=== PATIENT | male | born 1990 | race Caucasian/White ===

== ENCOUNTER 2022-06-12 18:51 | Emergency (ER) | payer OTHER ==
[2022-06-12 19:02] VITALS: TEMP 98.4
[2022-06-12] MEDS ORDERED: SODIUM CHLORIDE 0.9% 1,000 ML IV STA (19:10)
[2022-06-12] MEDS ORDERED: ACETAMINOPHEN IV (For NPO) 1,000 MG in SALINE 100 100ML.BAG IVPB STA (19:12)
[2022-06-12 19:31] LABS: Basophils % (A) 0 %; Eosinophils # (A) 0.5 k/uL (0-0.7); Eosinophils % (A) 5 %; HCT 43.9 % (39.0-53.0); HGB 15.1 gm/dL (13.0-17.5); Lymphocytes # (A) 2.4 k/uL (1.0-4.8); Lymphocytes % (A) 26 %; MCH 29.9 pg (25.0-35.0); MCHC 34.4 g/dL (31.0-37.0); MCV 86.9 fL (80.0-100.0); Mean Platelet Volume 7.5; Monocytes # (A) 0.5 k/uL (0-1.0); Monocytes % (A) 6 %; Neutrophils # (A) 5.7 k/uL (1.3-7.7); Neutrophils % (A) 62 %; Platelet Count 326 k/uL (150-450); RBC 5.05 m/uL (4.30-5.90); RDW 12.3 % (11.5-15.5); WBC 9.2 k/uL (3.8-10.6)
--- NOTE | 2022-06-12 19:31 | ED ---
General Adult HPI - General Chief complaint: Chest Pain Stated complaint: Chest Pain Time Seen by Provider: 06/12/22 19:04 Source: patient, RN notes reviewed Mode of arrival: ambulatory Limitations: no limitations - History of Present Illness Initial comments: This is a pleasant 31-year-old male who presents to the emergency department complaining of headache and chest discomfort. Patient states about 5:00 he just finished eating and developed a headache which came on fairly suddenly. Patient states it was throbbing and sharp behind his eyes. Patient still has the headache. He states the headache currently as severe. Patient also ascertains that he has some nausea. Patient states she has no history of headaches. Patient does have a history of pulmonary embolism as well as hypertension and panic attacks. Patient states he takes lisinopril, metoprolol, and Lipitor. Patient currently at [facility] for opioids and metham phetamine. Patient also states that he previously had bilateral pulmonary emboli about 10 years ago. Patient states that the chest discomfort is intermittent. Apparently he was given nitroglycerin in the ambulance. This may worsen the headache. She denying any vertiginous symptoms. No vision change. Headache currently throbbing. Patient does ascertains that he has some neck stiffness. Note that the patient states he has experienced chest discomfort such as this previously when he has had panic attacks. Patient states he has been at [facility] for about 10 days. no fever or chills, no changes in vision or hearing, no sore throat or difficulty with speech, no neck pain, noshortness of breath, no abdominal pain, no nausea or vomiting, no changes in urination or bowel movements, no numbness or tingling, no extremity pain, no skin rashes or lesions. Past medical, surgical, social, and family history reviewed. - Related Data Home Medications Medication Instructions Recorded Confirmed Acetaminophen Tab [Tylenol] 650 mg PO TID 06/12/22 06/12/22 Atorvastatin [Lipitor] 10 mg PO HS 06/12/22 06/12/22 Calcium/Magnesium/Zinc/Vitamin D 1 tab PO TID 06/12/22 06/12/22 Chlorpheniramine Maleate 4 mg PO Q4H PRN 06/12/22 06/12/22 [Chlor-Trimeton] Docusate [Colace] 100 mg PO BID PRN 06/12/22 06/12/22 Ibuprofen [Motrin Ib] 600 mg PO Q6H PRN 06/12/22 06/12/22 Metoprolol Tartrate [Lopressor] 50 mg PO DAILY 06/12/22 06/12/22 Multivitamins, Thera [Multivitamin 1 tab PO DAILY 06/12/22 06/12/22 (formulary)] Nicotine [Nicoderm Cq 14 mg] 1 patch TRANSDERM DAILY PRN 06/12/22 06/12/22 OLANZapine ODT [ZyPREXA ZYDIS] 5 mg PO DAILY PRN 06/12/22 06/12/22 OLANZapine [ZyPREXA] 15 mg PO HS 06/12/22 06/12/22 Paliperidone IM [Invega Sustenna] 156 mg IM QMONTHLY 06/12/22 06/12/22 Thiamine [Vitamin B-1] 100 mg PO DAILY PRN 06/12/22 06/12/22 bisacodyL [Dulcolax] 5 mg PO BID PRN 06/12/22 06/12/22 busPIRone HCl [Buspar] 10 mg PO TID 06/12/22 06/12/22 cloNIDine HCL [Catapres] 0.1 - 0.3 mg PO Q4H PRN 06/12/22 06/12/22 guaiFENesin SYRUP 100MG/5ML 200 mg PO Q4H PRN 06/12/22 06/12/22 [Robitussin] lisinopriL [Prinivil] 20 mg PO DAILY 06/12/22 06/12/22 traZODone HCL [Desyrel] 50 mg PO HS 06/12/22 06/12/22 Allergies Allergy/AdvReac Type Severity Reaction Status Date / Time codeine AdvReac Vomiting Verified 06/12/22 19:02 Review of Systems ROS Statement: Those systems with pertinent positive or pertinent negative responses have been documented in the HPI. ROS Other: All systems not noted in ROS Statement are negative. Past Medical History Past Medical History: Hypertension Additional Past Medical History / Comment(s): Back problems. History of Any Multi-Drug Resistant Organisms: None Reported Additional Past Surgical History / Comment(s): Back Past Psychological History: Anxiety, Schizophrenia Smoking Status: Current every day smoker Past Alcohol Use History: None Reported Past Drug Use History: Methamphetamine, Opiates General Exam - General Exam Comments Initial Comments: Patient appears very mild distress. Vital signs reviewed. Patient noted to be hypertensive. Cranial nerves II through XII are intact. Patient is alert and oriented 4. Does not appear to be ill or toxic. Limitations: no limitations General appearance: alert, in no apparent distress, in distress Head exam: Present: atraumatic, normocephalic, normal inspection Eye exam: Present: normal appearance, PERRL, EOMI. Absent: scleral icterus, c onjunctival injection, periorbital swelling ENT exam: Present: normal exam, normal oropharynx, mucous membranes moist, normal external ear exam. Absent: mucous membranes dry Neck exam: Present: normal inspection, full ROM, other (No evidence of nuchal rigidity). Absent: tenderness, meningismus, lymphadenopathy Respiratory exam: Present: normal lung sounds bilaterally. Absent: respiratory distress, wheezes, rales, rhonchi, stridor Cardiovascular Exam: Present: normal rhythm, tachycardia, normal heart sounds. Absent: systolic murmur, diastolic murmur, rubs, gallop, clicks GI/Abdominal exam: Present: soft, normal bowel sounds. Absent: distended, tenderness, guarding, rebound, rigid Extremities exam: Present: normal inspection, full ROM, normal capillary refill. Absent: tenderness, pedal edema, joint swelling, calf tenderness Back exam: Present: normal inspection Neurological exam: Present: alert, oriented X3, CN II-XII intact, normal gait, reflexes normal. Absent: abnormal gait, motor sensory deficit Expanded Patient oriented to: Present: person, place, time Speech: Present: fluid speech Cranial nerves: EOM's Intact: Normal, Gag Reflex: Normal, Tongue Deviation: Normal, Nystagmus: Normal, Facial Sensation: Normal, Facial Palsy with Forehead Movement: Normal, Facial Palsy without Forehead Movement: Normal Cerebellar function: Finger to Nose: Normal, Romberg: Normal Sensory exam: Upper Extremity Light Touch: Normal, Upper Extremity Pin Prick: N ormal, Lower Extremity Light Touch: Normal, Lower Extremity Pin Prick: Normal Eye Response: (4) open spontaneously Motor Response: (6) obeys commands Verbal Response: (5) oriented Valders Total: 15 Psychiatric exam: Present: normal affect, normal mood Skin exam: Present: warm, dry, intact, normal color. Absent: rash Course Vital Signs 06/12/22 06/12/22 18:57 19:52 Temperature 98.4 F Pulse Rate 115 H 98 Respiratory 22 16 Rate Blood Pressure 154/95 137/96 O2 Sat by Pulse 97 96 Oximetry - Reevaluation(s) Reevaluation #1: 06/12/22 21:27 Medical record is reviewed Symptoms are improved here in the emergency department Patient is informed of results and questions answered Patient in no distress Apparently the patient made statements to the ER and that he was having suicidal ideations, he was discussing the possibility of walking out into traffic. EPS evaluation ordered. Reevaluation #2: 06/12/22 21:56 Medical record is reviewed Symptoms are improved here in the emergency department Patient is informed of results and questions answered Patient in no distress Patient neurologically intact, cranial nerves II through XII intact, no focal deficits Reevaluation #3: 06/12/22 22:55 Patient reevaluated. I did place a call to the on-call neurologist who discussed the case with me in detail. He is driving home and will look at the patient's computed tomography scan in about 25 minutes. Chronic back. The patient himself has no chest symptoms remaining. Headache has improved. No evidence of neurologic deficit. No nuchal rigidity. Heart rate is normalizing. Given the patient's history of anxiety and similar chest symptoms and his age I think this is unlikely to be cardiac ischemia related. Opponent was negative. - Consultations Consultation #1: The case was discussed in detail with ED attending physician. Presentation, findings, treatment plan discussed in detail. Supervising physician, Dr. Pendleton. Call placed for on-call neurology. Call placed to EPS for evaluation as well. Consultation #2: Case again discussed with Dr. Gonzalezwho feels this is a small hemorrhage near the formant of [facility]. Request that the patient get transferred to a facility with neurosurgical care. Consultation #3: Case discussed in detail with Dr. Bray, the ER physician at [facility] accepts transfer. EKG Findings - EKG Comments: EKG Findings:: EKG done at 1856. ED attending physician reveals sinus tachycardia with a short SD interval. Rate of 115 bpm. SD interval is 116 ms. Remainder of the intervals are normal. Mild baseline artifact. Normal axis. Minimal T-wave flattening noted in lead 3. No evidence of significant ST elevation or depression. No comparison study Medical Decision Making - Medical Decision Making I'm going to obtain a computed tomography scan of the brain as a patient has no significant history of headaches. This headache also came on fairly suddenly 2 hours prior to my evaluation. Patient also states that there seems to be some stiff feeling in his neck. On-call neurology, Dr. Rivero, feels this is more indicative of a hemorrhage rather than a colloid cyst. Advises transferred to a neurosurgical center. Call placed to [facility]. Discussed all findings with the patient who is improved headache-villalobos. Patient neurologically intact. Patient still complaining of some neck stiffness. The case was discussed in detail with ED attending physician. Presentation, findings, treatment plan discussed in detail. Filling Mixer Dr. Pendleton Patient was given IV acetaminophen 1000 mg and 1 mg of lorazepam here in the ER. - Lab Data Result diagrams: 06/12/22 19:14 06/12/22 19:14 Lab Results 06/12/22 06/12/22 06/12/22 Range/Units 19:14 19:14 19:14 WBC 9.2 (3.8-10.6) k/uL RBC 5.05 (4.30-5.90) m/uL Hgb 15.1 (13.0-17.5) gm/dL Hct 43.9 (39.0-53.0) % MCV 86.9 (80.0-100.0) fL MCH 29.9 (25.0-35.0) pg MCHC 34.4 (31.0-37.0) g/dL RDW 12.3 (11.5-15.5) % Plt Count 326 (150-450) k/uL MPV 7.5 Neutrophils % 62 % Lymphocytes % 26 % Monocytes % 6 % Eosinophils % 5 % Basophils % 0 % Neutrophils # 5.7 (1.3-7.7) k/uL Lymphocytes # 2.4 (1.0-4.8) k/uL Monocytes # 0.5 (0-1.0) k/uL Eosinophils # 0.5 (0-0.7) k/uL Basophils # 0.0 (0-0.2) k/uL D-Dimer 0.23 (<0.60) mg/L FEU Sodium 140 (137-145) mmol/L Potassium 4.1 (3.5-5.1) mmol/L Chloride 104 (98-107) mmol/L Carbon Dioxide 22 (22-30) mmol/L Anion Gap 14 mmol/L BUN 15 (9-20) mg/dL Creatinine 0.88 (0.66-1.25) mg/dL Est GFR (CKD-EPI)AfAm >90 (>60 ml/min/1.73 sqM) Est GFR (CKD-EPI)NonAf >90 (>60 ml/min/1.73 sqM) Glucose 104 H (74-99) mg/dL Calcium 9.9 (8.4-10.2) mg/dL Magnesium 2.0 (1.6-2.3) mg/dL Total Bilirubin 0.4 (0.2-1.3) mg/dL AST 47 (17-59) U/L ALT 87 H (4-49) U/L Alkaline Phosphatase 77 (38-126) U/L Troponin I (0.000-0.034) ng/mL Total Protein 7.0 (6.3-8.2) g/dL Albumin 4.7 (3.5-5.0) g/dL Urine Opiates Screen (NotDetected) Ur Oxycodone Screen (NotDetected) Urine Methadone Screen (NotDetected) Ur Propoxyphene Screen (NotDetected) Ur Barbiturates Screen (NotDetected) U Tricyclic Antidepress (NotDetected) Ur Phencyclidine Scrn (NotDetected) Ur Amphetamines Screen (NotDetected) U Methamphetamines Scrn (NotDetected) U Benzodiazepines Scrn (NotDetected) Urine Cocaine Screen (NotDetected) U Marijuana (THC) Screen (NotDetected) 06/12/22 06/12/22 Range/Units 19:14 20:56 WBC (3.8-10.6) k/uL RBC (4.30-5.90) m/uL Hgb (13.0-17.5) gm/dL Hct (39.0-53.0) % MCV (80.0-100.0) fL MCH (25.0-35.0) pg MCHC (31.0-37.0) g/dL RDW (11.5-15.5) % Plt Count (150-450) k/uL MPV Neutrophils % % Lymphocytes % % Monocytes % % Eosinophils % % Basophils % % Neutrophils # (1.3-7.7) k/uL Lymphocytes # (1.0-4.8) k/uL Monocytes # (0-1.0) k/uL Eosinophils # (0-0.7) k/uL Basophils # (0-0.2) k/uL D-Dimer (<0.60) mg/L FEU Sodium (137-145) mmol/L Potassium (3.5-5.1) mmol/L Chloride (98-107) mmol/L Carbon Dioxide (22-30) mmol/L Anion Gap mmol/L BUN (9-20) mg/dL Creatinine (0.66-1.25) mg/dL Est GFR (CKD-EPI)AfAm (>60 ml/min/1.73 sqM) Est GFR (CKD-EPI)NonAf (>60 ml/min/1.73 sqM) Glucose (74-99) mg/dL Calcium (8.4-10.2) mg/dL Magnesium (1.6-2.3) mg/dL Total Bilirubin (0.2-1.3) mg/dL AST (17-59) U/L ALT (4-49) U/L Alkaline Phosphatase (38-126) U/L Troponin I <0.012 (0.000-0.034) ng/mL Total Protein (6.3-8.2) g/dL Albumin (3.5-5.0) g/dL Urine Opiates Screen Not Detected (NotDetected) Ur Oxycodone Screen Not Detected (NotDetected) Urine Methadone Screen Not Detected (NotDetected) Ur Propoxyphene Screen Not Detected (NotDetected) Ur Barbiturates Screen Not Detected (NotDetected) U Tricyclic Antidepress Not Detected (NotDetected) Ur Phencyclidine Scrn Not Detected (NotDetected) Ur Amphetamines Screen Not Detected (NotDetected) U Methamphetamines Scrn Not Detected (NotDetected) U Benzodiazepines Scrn Not Detected (NotDetected) Urine Cocaine Screen Not Detected (NotDetected) U Marijuana (THC) Screen Not Detected (NotDetected) - Radiology Data Radiology results: report reviewed, image reviewed Disposition Clinical Impression: Acute headache, Intracranial hemorrhage, Suicidal ideation, Uncontrolled hypertension, Atypical chest pain Disposition: TRANSFER TO PSYCH HOSP/UNIT Condition: Stable Is patient prescribed a controlled substance at d/c from ED?: No Referrals: None,Stated [Primary Care Provider] - 1-2 days Time of Disposition: 22:58 - Out of Hospital Transfer - Req. Specs Out of Hospital Transfer - Requested Specifics: Other Emergency Center
[2022-06-12 19:44] LABS: ALT 87 U/L (4-49); AST 47 U/L (17-59); African American GFR (CKD) >90 (>60 ml/min/1.73 sqM); Albumin 4.7 g/dL (3.5-5.0); Alkaline Phosphatase 77 U/L (38-126); Anion Gap 14 mmol/L; Blood Urea Nitrogen 15 mg/dL (9-20); Calcium 9.9 mg/dL (8.4-10.2); Carbon Dioxide 22 mmol/L (22-30); Chloride 104 mmol/L (98-107); Glucose 104 mg/dL (74-99); Non-African American GFR(CKD) >90 (>60 ml/min/1.73 sqM); Potassium 4.1 mmol/L (3.5-5.1); Sodium 140 mmol/L (137-145); Total Bilirubin 0.4 mg/dL (0.2-1.3)
[2022-06-12 19:54] VITALS: RESP 16
--- NOTE | 2022-06-12 19:59 | XR ---
EXAMINATION TYPE: XR chest 1V portable DATE OF EXAM: 06/12/2022 7:25 PM COMPARISON: None TECHNIQUE: XR chest 1V portable Frontal and lateral views of the chest. CLINICAL INDICATION:Male, 31 years old with history of chest pain; FINDINGS: Lungs/Pleura: There is no evidence of pleural effusion, focal consolidation, or pneumothorax. Pulmonary vascularity: Unremarkable. Heart/mediastinum: Cardiomediastinal silhouette is unremarkable. Musculoskeletal: No acute osseous pathology. Extensive postsurgical changes of the spine. Hardware ap pears intact. IMPRESSION: No acute cardiopulmonary disease/process.
--- NOTE | 2022-06-12 20:07 | CT ---
EXAMINATION TYPE: CT brain wo con CT DLP: 1251.4 mGycm, Automated exposure control for dose reduction was used. DATE OF EXAM: 06/12/2022 7:49 PM COMPARISON: None. CLINICAL INDICATION:Male, 31 years old with history of Headache, Sudden onset, Headache, Sudden onset TECHNIQUE: Brain: Axial CT images of the brain were obtained with coronal and sagittal reformats created and rev iewed. Contrast used: None. Oral contrast used: None. FINDINGS: Brain: Extra-axial spaces: No abnormal extra-axial fluid collections. Ventricular system: Within normal limits, there is a high density focus measuring 5 mm at the foramen of Hill on the right. Cerebral parenchyma: No acute intraparenchymal hemorrhage or mass effect. The west-white junction is well differentiated. Cerebellum: Unremarkable. Mass effect: No evidence of midline shift. Intracranial vasculature: unremarkable Soft tissues: Normal. Calvarium/osseous structures: No depressed skull fracture. Paranasal sinuses and mastoid air cells: Mild scattered paranasal sinus disease. Visualized orbits: Orbital contents are intact. IMPRESSION: 1. No acute intracranial hemorrhage. 2. High-density focus measuring 5 mm at the foramen of Hill on the right favored represent a collo id cyst. No ventricular dilation to suggest obstruction. Consider MRI with IV contrast for further ev aluation.
[2022-06-12 21:13] LABS: Amphetamine Screen,Urine Not Detected (NotDetected); Barbiturate Screen,Urine Not Detected (NotDetected); Benzodiazepines Screen,Urine Not Detected (NotDetected); Cocaine Screen,Urine Not Detected (NotDetected); Methadone Screen, Urine Not Detected (NotDetected); Opiate Screen,Urine Not Detected (NotDetected); Oxycodone Screen, Urine Not Detected (NotDetected); Phencyclidine Screen,Urine Not Detected (NotDetected); Tricyclic Antidepressant,Urine Not Detected (NotDetected); Urn Cannabinoid Scrn Not Detected (NotDetected)
--- NOTE | 2022-06-12 21:45 | CT ---
EXAMINATION TYPE: CT angio head neck CT DLP: 589.2 mGycm, Automated exposure control for dose reduction was used. DATE OF EXAM: 06/12/2022 9:29 PM COMPARISON: CT brain same day. CLINICAL INDICATION:Male, 31 years old with history of Headache, sudden onset; , Headache, sudden ons et TECHNIQUE: Axially acquired helical CT angiogram of the head and neck was obtained with contrast. Axi al images are supplemented with 3D reconstructions which [facility] NASCET criteria used. Contrast used:65ml mL of Isovue 370 with IV Contrast, Oral contrast used: None. FINDINGS: CTA HEAD: No evidence of acute intracranial hemorrhage, mass effect, or midline shift. The ventricles, sulci, a nd cisterns are unremarkable. The visualized portions of the internal carotid arteries, middle cerebral arteries, anterior cerebral arteries, and posterior cerebral arteries are patent. The basilar and vertebral arteries are patent. Atrophic left dominant right transverse sinus. CTA NECK: Right Carotid System: The common carotid artery and external carotid artery are patent. The carotid bifurcation demonstrate s no evidence of hemodynamically significant stenosis. The remaining portions of the internal carotid artery demonstrate normal size without significant narrowing. Left Carotid System: The common carotid artery and external carotid artery are patent. The carotid bifurcation demonstrate s no evidence of hemodynamically significant stenosis. The remaining portions of the internal carotid artery demonstrate normal size without significant narrowing. Vertebral arteries are patent without evidence hemodynamically significant stenosis. Right dominant v ertebral artery system. The left vertebral artery is diminutive and may terminate as the posterior henriquez perior cerebellar artery. There is a 4 vessel aortic arch. The origins of the great vessels are patent. No evidence of hemodyna mically significant stenosis. IMPRESSION: 1. No evidence of dissection of the cervical internal carotid arteries or vertebral arteries or any e vidence of significant stenosis at the carotid bifurcations. 2. No evidence of intracranial high-grade stenosis or intracranial aneurysm.
[2022-06-12] MEDS ORDERED: LORazepam 2 MG/ML INJ IV STA (23:15)
[2022-06-12 23:32] VITALS: BP 164/97; PULSE 110
== END 2022-06-13 00:31 ==
LOC: EC 18:51
DX: R45.851 Suicidal ideations (principal); R51.9 Headache, unspecified; I10 Essential (primary) hypertension; R07.89 Other chest pain; I62.9 Nontraumatic intracranial hemorrhage, unspecified; F41.9 Anxiety disorder, unspecified; F17.200 Nicotine dependence, unspecified, uncomplicated; Z88.5 Allergy status to narcotic agent; Z79.899 Other long term (current) drug therapy
CPT/HCPCS: 36415; 85379; 80053; 83735; 84484; 85025; 80306; 71045; 70496; 70450; 70498; 99285; 96365; 96366 ×4; 96375; J2060; J0131; Q9967; 93005